=== PATIENT | female | born 1990 | race Caucasian/White ===

== ENCOUNTER → 2022-12-22 14:42 | Outpatient (CLI) | payer BC, SELFPAY ==
--- NOTE | ~2022-12-22 | US_ITS ---
EXAMINATION: US OB <= 14 weeks fetus DATE: 12/22/2022 14:59 INDICATION: Encounter for supervision of normal first trimester . Establish dating. TECHNIQUE: Real-time pelvic ultrasound utilizing transabdominal probe was performed. The geni corona radiologist was not present for the study. COMPARISON: None. FINDINGS: The uterus measures 13.9 x 4.3 x 7.6 cm. There is an intrauterine gestational sac. A yolk sac and fe samantha pole are identified. The crown rump length measures 3.1 cm, which correlates with an estimated ge stational age of 10 weeks and 0 days. heart motion is identified measuring 159 beats per minute (bpm) by M-mode Doppler. The right ovary measures 3.0 x 1.2 x 2.0 cm. The left ovary measures 3.6 x 1.9 x 2.6 cm. Vascular kesha w with arterial waveforms identified in both ovaries on color Doppler. There is no free fluid in the pelvis. IMPRESSION: 1. Single living fetus with heart rate of 159 bpm. 2. Gestational age by ultrasound of 10 weeks 0 day(s) +/- 6 day(s) with ultrasound estimated date of delivery (TANVI) of 07/20/2023. Reviewed, dictated and finalized at location B. IMPRESSION: 1. Single living fetus with heart rate of 159 bpm. 2. Gestational age by ultrasound of 10 weeks 0 day(s) +/- 6 day(s) with ultras ound estimated date of delivery (TANVI) of 07/20/2023.
== END ==
PROVIDERS: PCP Obstetrics & Gynecology; Visit Provider Registered Nurse
DX: Z34.90 Encounter for supervision of normal pregnancy, unspecified, unspecified trimester (principal); Z3A.10 10 weeks gestation of pregnancy
CPT/HCPCS: 76801

== ENCOUNTER 2023-05-01 07:33 | Outpatient (CLI) | payer BC, SELFPAY ==
[2023-05-01 08:13] LABS: Glucose Fasting Gestational 88 mg/dL (>/=95)
[2023-05-01 09:41] LABS: Glucose 1 Hour Gest 187 mg/dL (>/=180)
[2023-05-01 10:40] LABS: Glucose 2 Hour Gest 173 mg/dL (>/= 155)
[2023-05-01 11:39] LABS: Glucose 3 Hour Gest 96 mg/dL (>/=140)
== END 2023-05-01 07:34 | disposition home or self-care (01) ==
PROVIDERS: Visit Provider Obstetrics & Gynecology
DX: O99.810 Abnormal glucose complicating pregnancy (principal); Z3A.00 Weeks of gestation of pregnancy not specified
CPT/HCPCS: 36415; 82951; 82952

== ENCOUNTER 2023-05-26 11:42 | Outpatient (CLI) | payer BC, SELFPAY ==
[2023-05-26 11:56] LABS: Hematocrit 37.8 % (37.0-47.0); Hemoglobin 12.7 g/dL (12.0-15.0); Mean Corpuscular HGB Conc 33.6 g/dl (32-36); Mean Corpuscular Hemoglobin 30.2 pg (26-34); Mean Corpuscular Volume 89.8 fl (80-100); Mean Platelet Volume 9.8 fl (7.4-10.4); Platelet Count Result 225 k/mm3 (150-375); Red Blood Count 4.21 M/mm3 (4.2-5.4); Red Cell Distribution Width 13.6 % (11.5-14.5); White Blood Count 13.2 K/mm3 (4.5-10.0)
[2023-05-26 12:11] LABS: Band Neutrophils Percent 1 % (0-6); Eosinophils Absolute Manual 0.13 K/mm3 (0.02-0.5); Eosinophils Percent Manual 1 % (0-4); Lymphocytes Absolute Manual 2.37 K/mm3 (1.1-4.5); Metamyelocytes Percent 2 %; Monocytes Absolute Manual 0.79 K/mm3 (0.1-0.90); Monocytes Percent Manual 6 % (3-9); Neutrophils Absolute Manual 9.63 K/mm3 (1.7-7.2); Neutrophils Percent Manual 72 % (46-73); Platelet Estimate Adequate (Adequate); Schistocytes None Seen (NORMAL); Total Cells Counted 100
[2023-05-26 12:12] LABS: Atypical Lymphocytes Present; Giant Platelets Present
[2023-05-26 17:02] LABS: Erythrocyte Sedimentation Rate 39 mm/hr (0-20)
[2023-05-26 17:03] LABS: Alanine Aminotransferase 21 U/L (6-35); Albumin Level 3.8 g/dL (3.5-5.1); Alkaline Phosphatase 89 U/L (38-126); Anion Gap 7 mmol/L (8-16); Aspartate Amino Transferase 21 U/L (14-36); Bilirubin,Total 0.3 mg/dL (0.2-1.3); Blood Urea Nitrogen 12 mg/dL (7-17); Carbon Dioxide 23 mmol/L (22-30); Chloride 102 mmol/L (98-107); Estimated Glomerular Filt Rate > 60; Glucose 95 mg/dL (65-110); Potassium 3.6 mmol/L (3.4-5.0); Sodium 132 mmol/L (137-145)
== END 2023-05-26 11:43 | disposition home or self-care (01) ==
PROVIDERS: Visit Provider Internal Medicine Hematology & Oncology
DX: D72.829 Elevated white blood cell count, unspecified (principal)
CPT/HCPCS: 36415; 80053; 85025; 85652; 86140

== ENCOUNTER 2023-06-07 08:42 | Outpatient (CLI) | payer BC, SELFPAY | END 2023-06-07 08:43 | disposition home or self-care (01) | PROVIDERS: Visit Provider Internal Medicine Hematology & Oncology | DX: D72.829 Elevated white blood cell count, unspecified (principal) | CPT/HCPCS: 88184 ==

== ENCOUNTER 2023-07-20 02:19 | Inpatient (IN) | payer BC, SELFPAY ==
[2023-07-20] VITALS (24 sets, daily range): BP systolic 101–144; BP diastolic 57–104; PULSE 76–126; RESP 16–18; TEMP 36.4–37.2; O2SAT 95–100; BMI 34.1
[2023-07-20 03:06] LABS: Glucose Point of Care 94 mg/dl (65-105)
--- NOTE | 2023-07-20 03:06 | LDADM ---
This patient, Silvia Hull, was admitted to Labor/Delivery/Recovery 107 on 07/20/23 at 02:19. Plans for labor, pain management and were discussed with patient. Patient/family oriented to hospital policies and general routines including ID bracelet, bed and alarms, visiting hours, pain management, procedures, bathroom and other care routines, personal items, smoking policy, room service/diet and guest tray routines, infant security routines, and visiting hours. Patient/Family are encouraged to report perceived risks to care and to ask questions if they do not understand what they are told or what they should do. See OBIX for further documentation.
[2023-07-20 03:58] LABS: Basophils Absolute Auto 0.1 K/mm3 (0.0-0.1); Basophils Percent Auto 0.4 % (0.2-1.2); Eosinophils Percent Auto 0.1 % (0-4.4); Hemoglobin 12.5 g/dL (12.0-15.0); Immature Granulocyte Absolute 0.23 K/mm3 (0.00-0.031); Immature Granulocyte Percent A 1.4 % (0-0.5); Immature Platelet Fraction Pct 5.7 % (0.9-11.2); Lymphocytes Absolute Auto 1.31 K/mm3 (0.9-3.2); Mean Corpuscular HGB Conc 32.9 g/dl (32-36); Mean Corpuscular Hemoglobin 29.2 pg (26-34); Mean Corpuscular Volume 88.8 fl (80-100); Mean Platelet Volume 11.1 fl (7.4-10.4); Monocytes Absolute Auto 0.7 K/mm3 (0.1-0.6); Monocytes Percent Auto 4.2 % (2.6-8.5); Neutrophils Absolute Auto 14.1 K/mm3 (1.3-6.7); Neutrophils Percent Auto 85.9 % (45.5-73.1); Platelet Count Result 257 k/mm3 (150-375); Red Blood Count 4.28 M/mm3 (4.2-5.4); Red Cell Distribution Width 14.1 % (11.5-14.5); White Blood Count 16.4 K/mm3 (4.5-10.0)
--- NOTE | 2023-07-20 05:07 | WPDANESEPP ---
Anes - Eval Pre Procedure Procedure: labor epidural Date/Time: 07/20/23 05:07 Surgeon: bart Preop Diagnosis: pain during labor Pre Op Diagnosis: Labor Patient Data Age: 33 Gender: F Height: 1.55 m Weight: 82 kg Last Vital Signs Pulse 90 07/20/23 03:48 BP 111/65 07/20/23 03:48 Allergies Allergy/AdvReac Type Severity Reaction Status Date / Time No Known Allergies Allergy Verified 07/13/23 08:12 Home Medications Medication Instructions Recorded Confirmed Type cholecalciferol (vitamin D3) 50 50 mcg PO DAILY 05/27/23 06/23/23 History mcg (2,000 unit) capsule prenat.vits,yumiko,zfq-viqo-zhrdv tablet 06/21/23 06/23/23 History Laboratory Tests 07/20/23 07/20/23 03:03 03:47 WBC 16.4 H K/mm3 (4.5-10.0) RBC 4.28 M/mm3 (4.2-5.4) Hgb 12.5 g/dL (12.0-15.0) Hct 38.0 % (37.0-47.0) MCV 88.8 fl (80-100) MCH 29.2 pg (26-34) MCHC 32.9 g/dl (32-36) RDW 14.1 % (11.5-14.5) Plt Count 257 k/mm3 (150-375) MPV 11.1 H fl (7.4-10.4) Immature Gran % (Auto) 1.4 H % (0-0.5) Neut % (Auto) 85.9 H % (45.5-73.1) Lymph % (Auto) 8.0 L % (18.3-44.2) Bates % (Auto) 4.2 % (2.6-8.5) Eos % (Auto) 0.1 % (0-4.4) Baso % (Auto) 0.4 % (0.2-1.2) Lymph # (Auto) 1.31 K/mm3 (0.9-3.2) Bates # (Auto) 0.7 H K/mm3 (0.1-0.6) Eos # (Auto) 0.0 K/mm3 (0-0.3) Baso # (Auto) 0.1 K/mm3 (0.0-0.1) Abs Immat Gran (auto) 0.23 H K/mm3 (0.00-0.031) Absolute Neuts (auto) 14.1 H K/mm3 (1.3-6.7) Absolute Nucleated RBC 0.0 K/mm3 (0.0-0.012) Nucleated RBC % 0.0 % (0.0-0.2) % Immature Plt Fraction 5.7 % (0.9-11.2) POC Capillary Glucose 94 mg/dl (65-105) RPR Pending Blood Type A Positive Antibody Screen Negative Patient hx anesthesia problems: none Family hx anesthesia problems: none Results Review: All pre-operative results and documents have been reviewed as part of the pre-operative evaluation. [facility] Past Medical History Medical History (Updated 07/20/23 @ 05:08 by Cheyenne Stephenson CRNA) IUP (intrauterine ), incidental Surgical History Surgical History S/P wisdom tooth extraction 2019 Family History Family History Grandparent Heart disease Cancer of vulva Social History Social History Smoking status: Never smoker Alcohol intake: former Alcohol use details: Not since Substance use: never Do You Feel Safe in your Home?: Yes Lack of Transportation: No Lack of Food: Never True Current Housing: I Have Housing Concerned About Future Housing: No Difficulty Paying Gas/Electric Bills: No Difficulty Paying for Meds: No Currently Unemployed: No Education: Bachelor's Degree Difficulty w/ Childcare or Family Care: No Living arrangements: with family Occupation/Education: occupation Sexual Orientation (if Verbalized by the Patient): Straight or Heterosexual Spiritual care concerns: No Exam Day of Procedure 07/20/23 05:07
[2023-07-20 05:24] LABS: Glucose Point of Care 94 mg/dl (65-105)
[2023-07-20] MEDS: LACTATED RINGERS 1,000 ML 125 ML IV CONT (06:30)
[2023-07-20 07:18] LABS: Glucose Point of Care 109 mg/dl (65-105)
[2023-07-20] MEDS: OXYTOCIN 30 UNITS/NS 500 ML 30 UNITS/500 ML BAG 999 UNITS IV CONT (08:06)
--- NOTE | 2023-07-20 08:22 | WPDOBADMIT ---
Obstetrics - Admit Note Admission Note: record reviewed. No pertinent additions to the history and/or any subsequent changes in the physical findings that are not consistent with the expected course of the were found. Additions to the history and/or subsequent changes in the physical findings follow. Here in labor. Progressed quickly to complete. complicated by GDMA1.
--- NOTE | 2023-07-20 08:23 | P.PCNOB_ITS ---
OB - Vaginal Delivery Note Procedure Delivery date: 07/20/23 Events: Gestational Diabetes (GDMA1) Induction method: None Delivery monitor: External FHT and External Uterine Route of delivery: Laceration Description: Perineal - 2nd Degree Delivery repair: vicryl (3-0) Specimen: Yes (placenta) Quantitative Blood Loss (ml): 150 Anesthesia type: Local Disposition: Floor Complications: No immediate complications [place]row Baby Date of : 07/20/23 Weeks of gestation at delivery: 40 Infant gender: Male presentation: vertex position: Right Occiput Anterior Placenta delivery description: Spontaneous and Abnormal Configuration (bilobed placenta) Cord Vessel Description: 3 Vessels and Delayed Cord Clamping
[2023-07-20] MEDS: OXYTOCIN 30 UNITS/NS 500 ML 30 UNITS/500 ML BAG 125 UNITS IV CONT (08:38)
[2023-07-20 10:33] LABS: Rapid Plasma Reagin Non-Reactive (NonReactive)
--- NOTE | 2023-07-20 11:11 | PC.NURSE ---
Patient transferred to post room #291 via wheelchair. Support person present. Oriented to unit, room, information board, rooming in, admission packet and security measures. Patient verbalizes understanding.
[2023-07-20] MEDS: MULTIVIT/MIN/PREN/FOL AC/IRON TABLET 1 TAB PO (15:36)
[2023-07-20] MEDS: IBUPROFEN 600 MG TABLET PO ×2 (15:36→22:22)
[2023-07-21] MEDS: IBUPROFEN 600 MG TABLET PO ×2 (04:43→14:42)
[2023-07-21 05:00] LABS: Hematocrit 32.7 % (37.0-47.0); Hemoglobin 10.5 g/dL (12.0-15.0)
[2023-07-21 07:35] VITALS: BP 109/67; PULSE 91; RESP 18; TEMP 36.8; O2SAT 99
--- NOTE | 2023-07-21 08:55 | PM.OBPNVD ---
OB - PN: Subj Subjective Date/time seen: 07/21/23 08:55 Patient comments: pain well controlled, tolerating diet and other (Decreasing lochia.) baby status: doing well and nursing well OB - PN: Obj Data Labs 07/21/23 04:55 Labs: Laboratory Results - last 24 hr 07/20/23 07/21/23 03:47 04:55 Hgb 10.5 L Hct 32.7 L RPR Non-reactive OB - PN A/P Plan day: 1 Plan: routine care Comments: Patient doing well. Time Spent With Patient Time: Total time spent is greater than 50% in coordination of care (as documented) at patient's floor/unit and/or counseling patient: Exam Psych: Affect: normal affect Other: Abd: fundus firm below umbilicus, nontender Perineum: healing Ext: nontender
[2023-07-21] MEDS: DOCUSATE SODIUM 100 MG CAPSULE PO (10:30)
[2023-07-21] MEDS: MULTIVIT/MIN/PREN/FOL AC/IRON TABLET 1 TAB PO (10:30)
[2023-07-21] MEDS: ACETAMINOPHEN 325 MG TABLET 650 MG PO (10:30)
[2023-07-21] MEDS: WITCH HAZEL 40 PADS 1 PAD TOPICAL (10:30)
--- NOTE | 2023-07-21 16:22 | PC.NURSE ---
[phone] Introductions were made, then consulted with patient to assess needs related to . Mother led the conversation with her?plans to feed?her infant, the?experience so far and the combo feeding that has been done since infant isn't latching well. Mother has been given a nipple shield prior to meeting and the tool may be used at some point. Encouraged understanding of the benefits of skin to skin (demonstrating unwrapping and placing upright on her chest), stimulating with massage touch, changing positions to encourage wakefulness, how to watch for early feeding cues, responsive feeding, feeding on demand (aiming for 8-12 times in 24 hours, about every 2-3 hours), milk production, building/maintaining a milk supply, duration of feeding, signs of adequate intake/output and how to record on the feeding sheet. Mother works well with her with encouragement and education. Reviewed positioning and ear, shoulder, hip alignment, supporting the breast to facilitate a deep latch, asymmetrical latch (off-center), leading with the chin with a big, open, wide gape and body close to mother. is crying and not settling at the breast, latches shallow and there's dimpling when there is a latch. Infant tongue sucks on the tip of the nipple. We attempted to breastfeed with cross cradle and laid-back positioning with no effective latching at this time. It is determined after some time that infant is at the late feeding cues stage. Discussed with parents that watching for the early feeding cues will make go a bit smoother a lot of time. demonstrated to the parents how to pace bottle feed to get past the hangry so hopefully will settle into . Reviewed good handwashing, cleaning the nipple shield and the appropriate way to apply and use as a tool. Discussed with mom the nipple shield precautions, possible complications associated with the risks and benefits. Reviewed practicing with a nipple shield, then without and how to protect the milk supply and production. We practiced once with the nipple shield to see if we could do the nipple shield waltz and get to latch. latched optimally to the left breast in football position. Education given to the mother of how to visualize the suckling (with good rocking jaw motion), swallows (dropping of the lower jaw) and how to listen for drinking at the breast (the ka sound). Infant was able to maintain latch without pain to mother protecting the nipple with optimal positioning and latching. self-detached after 15-20 min. and LC was still in the room answering questions, infant demonstrated feeding cues, then was assisted to latch on the right breast using the football positioning with mother sandwich holding her breast. Infant demonstrated swallowing on both breast. Mother did not need as much assistance with the final latch of the session. Reviewed comfort measures of healing with a warm, wet washcloth to rinse breast, then leave open to air-dry, good handwashing when or touching the breast/nipples to prevent infection. Mother voiced understanding of skin to skin, stimulating with massage touch, responsive feedings, hand expressed colostrum, talking to infant to encourage if it has been 2 -2.5 hours since the start of the last watching for early feeding cues, to call if infant does not latch, or if there is discomfort with . Reminded parents to protect the milk supply with a pumping session if doesn't latch and receives a bottle. Resources used for education were facilitated with the visual educational handouts, tool, mom and baby guide. Inpatient/outpatient resources provided with feeding sheet, name written on the communication board, and the mom/baby guide. Parents voiced understanding of information, demonstrated learning and will call if there is a request for assistanc
[2023-07-21 17:00] VITALS: BP 112/77; PULSE 71; RESP 16; RESP 18; TEMP 36.4; O2SAT 100
[2023-07-21 20:20] VITALS: BP 118/62; PULSE 64; RESP 16; TEMP 36.6
[2023-07-22 07:30] VITALS: BP 115/66; PULSE 78; RESP 18; TEMP 37.1; O2SAT 99
[2023-07-22] MEDS: MULTIVIT/MIN/PREN/FOL AC/IRON TABLET 1 TAB PO (09:23)
[2023-07-22] MEDS: DOCUSATE SODIUM 100 MG CAPSULE PO (09:23)
[2023-07-22] MEDS: WITCH HAZEL 40 PADS 1 PAD TOPICAL (09:23)
[2023-07-22] MEDS: ACETAMINOPHEN 325 MG TABLET 650 MG PO (09:23)
[2023-07-22] MEDS: BENZOCAINE 20% AER SPR (*SP) 56 GM CAN 1 SPRAY TOPICAL (09:23)
--- NOTE | 2023-07-22 14:08 | PC.NURSE ---
[phone] Mother verbalizes she is able to independently latch with appropriate positioning and alignment. She denies any nipple discomfort and is responsively . Infant is currently meeting outcomes for weight, output, jaundice, blood sugar and feeding frequencies of 8-12 times in 24 hours. Mother declines any additional assistance or education at this time. Mother is encouraged to call for assistance if her infant doesn?t latch, pain with latching, questions or concerns. Mother voiced understanding of information shared along with the mom/baby guide for an additional resource. Reported to the Primary RN.
[2023-07-23 10:32] VITALS: BP 96/80; PULSE 72; RESP 18; TEMP 36.6; O2SAT 100
--- NOTE | 2023-07-26 09:06 | PM.OBDSVD ---
DS: Admitting Diagnosis Discharge Date 07/22/23 Admitting Diagnosis gestational diabetes OB - DS: Summary OB Procedures : None OB Procedures Intrapartum: Spontaneous Vag Delivery OB Procedures: : None Peripartum Data Laceration Description: Perineal - 2nd Degree Status at Discharge Functional status at discharge: independent ambulation Overall status at discharge: patient is back to baseline Time Spent with Patient Time attestation: Total time spent providing and/or coordinating discharge services: Time spent: Less than 30 minutes Exam Const: General: comfortable and no acute distress Resp: Effort & Inspection: normal respiratory effort Auscultation: clear to auscultation bilaterally Cardio: Rate: regular rate GI: GI Palp: Yes Soft to palpation Auscultation: normal bowel sounds Other: Fundus firm below umbilicus Psych: Appearance: grossly normal Mental Status: mental status grossly normal Affect: normal affect DS: Data Data Completed and Pending Completed studies during hospitalization: Pending at discharge 07/20/23 13:50 Surgical [PTH] Routine Discharge Plan Discharge Consulting providers: Cheyenne Stephenson; Sera Emerson; Laz Bello Discharging Clinician: Laz Bello Patient Disposition: Home, Self-Care Activity: as tolerated and pelvic rest Diet: regular Discharge Instructions: Education: Mom and Baby Guide Given to: Mother Follow-Up: Call your delivering provider's office for an appointment to be seen in: 6 Weeks Mom and baby should come to the [facility] for the follow-up appointment. Appointment Date/Time: July 23, 2023 at 10:00 am What to expect at your follow-up visit: Blood Pressure Check Physical Assessment Call [phone] if you are unable to keep your appointment time. BREAST CARE: * Wear a snug supportive bra. * For engorgement discomfort: Breast Feeding: * Apply warm moist washcloths * Express milk as needed to relieve engorgement * Wear loose clothing Bottle Feeding: * May apply ice packs * For sore nipples: * Identify correct latch-on * Apply warm moist washcloths before and after nursing * Air dry nipples after nursing * May apply Lansinoh cream to nipples EPISIOTOMY/PERINEAL CARE: * Until bleeding stops, use your bret bottle after urinating * Change your pad frequently throughout the day * You may take sitz baths several times a day (fill your bathtub with warm water and soak for 20 minutes.) Do NOT bathe in the water * No tub baths until seen by your physician - You may shower ACTIVITY: * Rest as much as possible. * Do not exercise or lift anything heavier than your baby (such as laundry or other children.) * Avoid stairs or driving as much as possible. * Do not put anything into the vagina. No douching, tampons, or sexual activity until seen by physician. NOTIFY PHYSICIAN IF YOU HAVE ANY QUESTIONS OR IF ANY OF THE FOLLOWING SYMPTOMS OCCUR: * If your vaginal area becomes red, swollen, or more painful than what you have experienced in the hospital. * If your vaginal bleeding becomes foul smelling. * If your vaginal bleeding becomes more heavy than a period or if your bleeding changes from the brownish red/period color that it is now to bright red. However, you may pass an occasional walnut-sized clot once or twice for the first week . * If you experience a sharp, shooting pain in your calves. * If you discover a hard, reddened area on your breast or if you experience flu-like symptoms. DIET: * Eat regular, well-balanced meals. * Drink plenty of fluids daily. If , drink to thirst. Patient Instructions: Vaginal Delivery (DC) Stand Alone Forms: General Discharge Information Follow-up/Referrals: Ari Rankin MD [Physician] - 6 Weeks Discharge M
== END 2023-07-22 10:57 | disposition home or self-care (01) | DRG 807 ==
LOC: ANHLDR 02:36 → ANHOB2 10:35
PROVIDERS: Obstetrics & Gynecology Gynecology; Admitting Provider Obstetrics & Gynecology; Visit Provider Obstetrics & Gynecology
DX: O24.429 Gestational diabetes mellitus in childbirth, unspecified control (principal); Z37.0 Single live birth; O43.193 Other malformation of placenta, third trimester; O70.1 Second degree perineal laceration during delivery; Z3A.40 40 weeks gestation of pregnancy
CPT/HCPCS: 36415; 82948; 85014; 85018; 85025; 85055; 86592; 86850; 86900; 86901; 88307; A9270; J2590; J2795; J7120

== ENCOUNTER 2023-09-14 13:59 | Outpatient (CLI) | payer BC, SELFPAY ==
[2023-09-14 14:12] LABS: Basophils Absolute Auto 0.1 K/mm3 (0.0-0.1); Basophils Percent Auto 0.7 % (0.2-1.2); Eosinophils Absolute Auto 0.1 K/mm3 (0-0.3); Eosinophils Percent Auto 1.4 % (0-4.4); Hematocrit 42.1 % (37.0-47.0); Hemoglobin 13.6 g/dL (12.0-15.0); Immature Granulocyte Absolute 0.07 K/mm3 (0.00-0.031); Lymphocytes Absolute Auto 2.46 K/mm3 (0.9-3.2); Lymphocytes Percent Auto 34.5 % (18.3-44.2); Mean Corpuscular HGB Conc 32.3 g/dl (32-36); Mean Corpuscular Hemoglobin 28.6 pg (26-34); Mean Corpuscular Volume 88.6 fl (80-100); Monocytes Absolute Auto 0.6 K/mm3 (0.1-0.6); Monocytes Percent Auto 8.7 % (2.6-8.5); Neutrophils Absolute Auto 3.8 K/mm3 (1.3-6.7); Neutrophils Percent Auto 53.7 % (45.5-73.1); Platelet Count Result 306 k/mm3 (150-375); Red Blood Count 4.75 M/mm3 (4.2-5.4); Red Cell Distribution Width 12.4 % (11.5-14.5); White Blood Count 7.1 K/mm3 (4.5-10.0)
== END 2023-09-14 14:00 | disposition home or self-care (01) ==
LOC: ANHLAB 14:01
PROVIDERS: Visit Provider Internal Medicine Hematology & Oncology
DX: D72.829 Elevated white blood cell count, unspecified (principal)
CPT/HCPCS: 36415; 85025

== ENCOUNTER 2024-03-16 09:44 | Outpatient (CLI) | payer BC, SELFPAY ==
[2024-03-16 10:03] LABS: Basophils Percent Auto 0.6 % (0.2-1.2); Eosinophils Absolute Auto 0.1 K/mm3 (0-0.3); Hematocrit 44.9 % (37.0-47.0); Hemoglobin 14.5 g/dL (12.0-15.0); Immature Granulocyte Absolute 0.06 K/mm3 (0.00-0.031); Immature Granulocyte Percent A 0.8 % (0-0.5); Lymphocytes Absolute Auto 2.33 K/mm3 (0.9-3.2); Lymphocytes Percent Auto 32.5 % (18.3-44.2); Mean Corpuscular HGB Conc 32.3 g/dl (32-36); Mean Corpuscular Hemoglobin 28.5 pg (26-34); Mean Corpuscular Volume 88.2 fl (80-100); Mean Platelet Volume 9.3 fl (7.4-10.4); Monocytes Absolute Auto 0.6 K/mm3 (0.1-0.6); Monocytes Percent Auto 8.8 % (2.6-8.5); Neutrophils Percent Auto 56.3 % (45.5-73.1); Platelet Count Result 287 k/mm3 (150-375); Red Blood Count 5.09 M/mm3 (4.2-5.4); Red Cell Distribution Width 13.6 % (11.5-14.5); White Blood Count 7.2 K/mm3 (4.5-10.0)
== END 2024-03-16 09:45 | disposition home or self-care (01) ==
LOC: ANHLAB 09:45
PROVIDERS: Visit Provider Internal Medicine Hematology & Oncology
DX: D72.829 Elevated white blood cell count, unspecified (principal)
CPT/HCPCS: 36415; 85025

== ENCOUNTER 2025-03-20 09:39 | Outpatient (CLI) | payer BC, SELFPAY ==
[2025-03-20 09:52] LABS: Hematocrit 45.1 % (37.0-47.0); Hemoglobin 14.9 g/dL (12.0-15.0); Immature Granulocyte Percent A 0.5 % (0-0.5); Lymphocytes Absolute Auto 1.86 K/mm3 (0.9-3.2); Mean Corpuscular HGB Conc 33.0 g/dl (32-36); Mean Corpuscular Hemoglobin 29.2 pg (26-34); Mean Corpuscular Volume 88.4 fl (80-100); Nucleated Red Blood Cells Absolute Auto 0.000 K/mm3 (0.0-0.012); Nucleated Red Blood Cells Perc 0.0 % (0.0-0.2); Platelet Count Result 260 k/mm3 (150-375); Red Blood Count 5.10 M/mm3 (4.2-5.4); White Blood Count 5.9 K/mm3 (4.5-10.0)
[2025-03-20 09:56] LABS: Blood Urea Nitrogen 11 mg/dL (8-26); Carbon Dioxide 25 mmol/L (22-30); Chloride 101 mmol/L (98-109); Estimated Glomerular Filt Rate > 60; Glucose 90 mg/dL (70-105); Ionized Calcium (POC) 1.24 mmol/L (1.11-1.31); Potassium 3.8 mmol/L (3.5-4.9); Sodium 139 mmol/L (138-146)
--- OUTSIDE RECORDS SUMMARY | 2025-03-20 09:57 | XMS_ITS | Clinical Summary ---
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 Active cholecalciferol, Vitamin D3, (Vitamin D3) 50 mcg (2,000 unit) Tablet Take by mouth. Active Active Problems No known active problems Encounters Date Type Department Care Team Description 03/19/[address] [facility] Oncology and Hematology - [address] [phone] Jose Wolfe MD Leukocytosis, unspecified type (Primary Dx) 03/14/2025 External Device Data [facility] ABSTRACTION Provider, Abstract 03/13/2025 External Device Data [facility] ABSTRACTION Provider, Abstract 02/27/2025 External Device Data [facility] ABSTRACTION Provider, Abstract 02/07/2025 External Device Data [facility] ABSTRACTION Provider, Abstract 02/07/2025 External Device Data [facility] ABSTRACTION Provider, Abstract 01/16/2025 External Device Data [facility] ABSTRACTION Provider, Abstract 01/10/2025 External Device Data [facility] ABSTRACTION Provider, Abstract 12/19/2024 External Device Data [facility] ABSTRACTION Provider, Abstract from Last 3 Months Social History Tobacco Use Types Packs/Day Years Used Date Smoking Tobacco: Never Smokeless Tobacco: Never Tobacco Cessation:Counseling Given: Not Answered Alcohol Use Standard Drinks/Week Comments Not Currently 0 (1 standard drink = 0.6 oz pur e alcohol) Comments Unknown Sex and Gender Information Value Date Recorded Sex Assigned at Not on file Legal Sex Female 3:12 PM CDT Gender Identity Not on file Sexual Orientation Not on file Last Filed Vital Signs Vital Sign Reading Time Taken Comments Blood Pressure 132/82 03/16/2024 10:07 AM CDT Pulse 72 03/16/2024 10:07 AM CDT Temperature 36.6 C (97.8 F) 03/16/2024 10:07 AM CDT Respiratory Rate 16 03/16/2024 10:07 AM CDT Oxygen Saturation 97% 03/16/2024 10:07 AM CDT Inhaled Oxygen Concentration - - Weight 70.8 kg (156 lb) 03/16/2024 10:07 AM CDT Height - - Body Mass Index - - Plan of Treatment Upcoming Encounters Date Type Department Care Team (Late st Contact Info) Description 03/20/2025 10:00 AM CDT Office Visit [facility] Oncology and Hematology [facility] [address] [facility] [address] [place] [address] Jose Wolfe MD [address] [facility] [address] [place] [address] Arrived Health Maintenance Due Date Last Done Comments DTAP/TDAP/TD VACCINES (6 - Tdap) 2001 02/14/1996, 07/28/1991, 1990, Additional history exists HPV/Cotest (21-29) 2011 HPV VACCINES (1 - 3-dose SCD M series) 2017 CERVICAL CANCER SCREENING 01/26/2020 HPV/Cotest (30-65) 01/26/2020 PAP SMEAR 01/26/2020 Preventative Visit- Commercial 07/26/2024 INFLUENZA VACCINE (#1) 2025 05/20/2021 HEPATITIS B VACCINES Completed 07/12/2000, 02/09/2000, 01/05/2000 Insurance [facility] BL[facility] ACCESS CHOICE [facility] CHO[facility]
--- OUTSIDE RECORDS SUMMARY | 2025-03-20 09:57 | XMS_ITS | Encounter Summary ---
Author Organization 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 Role Phone Unavailable Primary Care Provider Unavailabl e Encounter Details Date Type Department Care Team ([facility] Contact Info) Description 03/19/2025 Orders Only [facility] Oncology and Hematology [address] [place] [address] Jose Wolfe MD [facility] [address] [place] [phone] Leukocytosis, unspecified type (Primary Dx) Social History Tobacco Use Types Packs/Day Years Used Date Smoking Tobacco: Never Smokeless Tobacco: Never Alcohol Use Standard Drinks/Week Comments Not Currently 0 (1 standard drink = 0.6 oz pur e alcohol) Comments Unknown Sex and Gender Information Value Date Recorded Sex Assigned at Not on file Legal Sex Female 3:12 PM CDT Gender Identity Not on file Sexual Orientation Not on file documented as of this encounter Plan of Treatment Upcoming Encounters Date Type Department Care Team (Late Contact Info) Description 03/20/2025 10:00 AM CDT Office Visit [facility] Oncology and Hematology [address] [place] [address] Jose Wolfe MD [facility] [address] [address] [place] [phone] Arrived Scheduled Orders Name Type Priority Associated Diagnoses Orde r Schedule CBC WITH DIFFERENTIAL Lab Routine Leukocytosis, unspecified type Expected: 03/19/2025, Expires: 03/19/2026 COMPREHENSIVE METABOLIC PANEL Lab Routine Leukocytosis, unspecified type Expected: 03/19/2025, Expires: 03/19/2026 documented as of this encounter Visit Diagnoses Diagnosis Leukocytosis, unspecified type- Primary documented in this encounter
[2025-03-20 11:59] LABS: Alanine Aminotransferase 31 U/L (6-35); Albumin Level 4.7 g/dL (3.5-5.1); Alkaline Phosphatase 61 U/L (38-126); Anion Gap 10 mmol/L (4-12); Aspartate Amino Transferase 38 U/L (14-36); Bilirubin,Total 0.5 mg/dL (0.2-1.3); Blood Urea Nitrogen 12 mg/dL (7-17); Calcium 9.5 mg/dL (8.4-10.2); Carbon Dioxide 26 mmol/L (22-30); Chloride 102 mmol/L (98-107); Estimated Glomerular Filt Rate > 60; Glucose 91 mg/dL (65-110); Potassium 3.9 mmol/L (3.4-5.0); Sodium 138 mmol/L (137-145); Total Protein 8.1 g/dL (6.3-8.2)
== END 2025-03-20 09:40 | disposition home or self-care (01) ==
LOC: ANHLAB 09:39
PROVIDERS: Visit Provider Internal Medicine Hematology & Oncology
DX: D72.829 Elevated white blood cell count, unspecified (principal)
CPT/HCPCS: 36415; 80047; 80053; 85025